=== PATIENT | male | born 1945 | race African-American/Black ===

== ENCOUNTER 2024-03-24 09:09 | Emergency (ER) | payer OTHER ==
[~2024-03-24] VITALS: Ht 175.3 cm; Wt 73.0 kg
[2024-03-24 09:12] VITALS: O2SAT 99
[2024-03-24] MEDS: LEVETIRACETAM 500MG PREMIX 100 ML IV ONE ×2 (09:30→10:51)
[2024-03-24] MEDS: LACTATED RINGERS 1,000 ML IV SCH (09:42)
[2024-03-24 10:19] LABS: BASOPHILS % 1.3 % (0.0-2.0); EOSINOPHILS % 7.5 % (0.0-5.0); HEMATOCRIT. 41.5 % (42.0-52.0); HEMOGLOBIN. 13.7 g/dL (14.0-18.0); LYMPHOCYTES % 41.1 % (20.0-50.0); MEAN CORPUSCULAR HEMOGLOBIN 32.1 pg (28.0-32.0); MEAN CORPUSCULAR HGB CONC 33.1 g/dL (31.0-37.0); MEAN CORPUSCULAR VOLUME 97.2 fL (80.0-94.0); MEAN PLATELET VOLUME 9.1 fl (7.4-10.4); MONOCYTES % 12.8 % (2.0-8.0); NEUTROPHILS % 37.3 % (40.0-76.0); PLATELET 215 x1000/uL (130-400); RED BLOOD CELL COUNT 4.27 mill/uL (4.7-6.1); RED CELL DISTRIBUTION WIDTH 13.2 % (11.6-14.6); WHITE BLOOD COUNT 3.8 x1000/uL (4.5-11.0)
[2024-03-24 10:21] LABS: CHLORIDE 102 mEq/L (98-107); POTASSIUM 4.1 mEq/L (3.5-5.1); SODIUM 134 mEq/L (136-145)
[2024-03-24 10:22] LABS: CARBON DIOXIDE 21 mEq/L (21-32)
[2024-03-24 10:23] LABS: CALCIUM 9.1 mg/dL (8.7-10.4)
[2024-03-24 10:27] LABS: GLUCOSE 111 mg/dL (70-105); UREA NITROGEN BLOOD 11 mg/dL (9-23)
[2024-03-24 10:29] LABS: ALANINE AMINOTRANSFERASE 22 IU/L (10-49); ASPARTATE AMINOTRANSFERASE 34 IU/L (<34)
[2024-03-24 10:30] LABS: BILIRUBIN DIRECT 0.4 mg/dL (<=3.0); BILIRUBIN TOTAL 1.2 mg/dL (0.1-1.0); PROTEIN TOTAL 7.1 g/dL (6.0-8.3)
[2024-03-24 10:32] LABS: ALBUMIN 4.3 g/dL (3.2-4.8)
[2024-03-24 10:53] VITALS: TEMP 97.7
[2024-03-24 13:10] VITALS: BP 127/87; PULSE 74; RESP 16
== END 2024-03-24 14:59 | disposition admitted as inpatient to this hospital (09) ==
LOC: ER 09:09 → EDBEDREQ 12:47 → EDBEDREQTM 12:47 → CANBEDREQ 14:58 → ER 14:59
DX: R56.9 Unspecified convulsions (principal); Z91.148 Patient's other noncompliance with medication regimen for other reason
CPT/HCPCS: 99285; 96365; 70450; 71045; 80076; 80048; 85025; 36415; 93005; J1953

== ENCOUNTER 2024-11-16 02:32 | Emergency (ER) | payer OTHER ==
[~2024-11-16] VITALS: Ht 172.7 cm; Wt 82.0 kg
[2024-11-16 02:38] VITALS: O2SAT 97
[2024-11-16] MEDS: LEVETIRACETAM 1000MG PREMIX 100 ML IV NR (03:26)
[2024-11-16] MEDS: LORAZEPAM 2MG/ML INJ IV NR (03:26)
[2024-11-16 04:00] LABS: EOSINOPHILS % 3.6 % (0.0-5.0); HEMATOCRIT. 40.5 % (42.0-52.0); HEMOGLOBIN. 13.6 g/dL (14.0-18.0); LYMPHOCYTES % 21.3 % (20.0-50.0); MEAN CORPUSCULAR HEMOGLOBIN 32.2 pg (28.0-32.0); MEAN CORPUSCULAR HGB CONC 33.6 g/dL (31.0-37.0); MEAN CORPUSCULAR VOLUME 95.8 fL (80.0-94.0); MEAN PLATELET VOLUME 8.2 fl (7.4-10.4); MONOCYTES % 8.9 % (2.0-8.0); NEUTROPHILS % 65.2 % (40.0-76.0); PLATELET 209 x1000/uL (130-400); RED BLOOD CELL COUNT 4.22 mill/uL (4.7-6.1); RED CELL DISTRIBUTION WIDTH 13.2 % (11.6-14.6); WHITE BLOOD COUNT 4.7 x1000/uL (4.5-11.0)
[2024-11-16 04:13] LABS: CHLORIDE 105 mEq/L (98-107); POTASSIUM 4.1 mEq/L (3.5-5.1); SODIUM 137 mEq/L (136-145)
[2024-11-16 04:14] LABS: CALCIUM 9.4 mg/dL (8.7-10.4); CARBON DIOXIDE 20 mEq/L (21-32)
[2024-11-16 04:19] LABS: CREATININE 0.9 mg/dL (0.6-1.3); GLUCOSE 89 mg/dL (70-105); UREA NITROGEN BLOOD 11 mg/dL (9-23)
[2024-11-16 05:19] LABS: TROPONIN I HIGH SENSITIVITY < 4 ng/L (3.0-53)
[2024-11-16 05:22] LABS: LACTIC ACID 3.7 mmol/L (0.4-2.0)
[2024-11-16 08:42] VITALS: BP 145/70; PULSE 77; RESP 13; TEMP 36.7; O2SAT 100
== END 2024-11-16 08:42 | disposition short-term general hospital (02) ==
LOC: ER 02:32
DX: R56.9 Unspecified convulsions (principal)
CPT/HCPCS: 99285; 96365; 70450; 71045; 96375; 80048; 83605; 85025; 84484; 36415; J1953; J2060; A4606